=== PATIENT | male | born 1985 | race Caucasian/White ===

== ENCOUNTER 2017-02-25 03:14 | Observation (INO) | payer SELFPAY ==
[2017-02-25 03:21] VITALS: TEMP 98
--- NOTE | 2017-02-25 03:38 | ED PDOC ---
HPI: Psych/Substance Abuse Time Seen by Provider: 02/25/17 03:24 Chief Complaint (Nursing): Alcohol Ingestion Chief Complaint (Provider): Alcohol ingestion ED Caveat: Intoxicated History Per: EMS History/Exam Limitations: intoxication Modifying Factor(s): Alcohol Additional Complaint(s): 32yo male, brought to ED by EMS for evaluation after finding the patient publicly intoxicated. Patient unable to provider HPI and ROS due to intoxication. He offers no medical complaints. Past Medical History Reviewed: Historical Data, Nursing Documentation, Vital Signs Vital Signs: Last Vital Signs Temp 98 F 02/25/17 03:18 Pulse 117 H 02/25/17 03:18 Resp 18 02/25/17 03:18 BP 120/67 02/25/17 03:18 Pulse Ox 100 02/25/17 03:18 - Medical History PMH: No Chronic Diseases - Surgical History Surgical History: No Surg Hx - Family History Family History: States: No Known Family Hx - Home Medications Home Medications: Ambulatory Orders Medication Instructions Recorded No Known Home Med 02/25/17 - Allergies Allergies/Adverse Reactions: Allergies Allergy/AdvReac Type Severity Reaction Status Date / Time No Known Allergies Allergy Verified 02/25/17 03:18 Review of Systems Review Of Systems: ROS cannot be obtained secondary to pt's inabilty to answer questions. Physical Exam - Reviewed Nursing Documentation Reviewed: Yes Vital Signs Reviewed: Yes - Physical Exam Appears: Positive for: No Acute Distress Head Exam: Positive for: ATRAUMATIC Skin: Positive for: Warm Eye Exam: Positive for: Normal appearance Neck: Positive for: Supple Cardiovascular/Chest: Positive for: Regular Rate, Rhythm Respiratory: Positive for: Normal Breath Sounds. Negative for: Respiratory Distress Gastrointestinal/Abdominal: Positive for: Soft. Negative for: Tenderness Back: Positive for: Normal Inspection Extremity: Positive for: Normal ROM. Negative for: Deformity, Swelling Neurologic/Psych: Positive for: Mood/Affect (slurred speech), Gait (unsteady ) - Laboratory Results Result Diagrams: 02/25/17 04:39 02/25/17 04:39 - ECG O2 Sat by Pulse Oximetry: 100 (RA) Pulse Ox Interpretation: Normal Medical Decision Making Medical Decision Making: Time: 323 Impression: EtOH Plan: -- Patient placed under 4point restraints as he is combative -- Labs -- Haldol 5mg IM -- Ativan 2mg IM Reassess Time: 0700 --Patient was endorsed to Dr. Kingsley Sánchez III. Pending sobriety and re- evaluation. Scribe Attestation: Documented by Sarah Yarbrough acting as a scribe for Glenn Melara MD. Provider Attestation: All medical record entries made by the Scribe were at my direction and personally dictated by me. I have reviewed the chart and agree that the record accurately reflects my personal performance of the history, physical exam, medical decision making, and the department course for this patient. I have also personally directed, reviewed, and agree with the discharge instructions and disposition. ED OBSERVATION Date of observation admission: 02/25/17 Time of observation admission: 03:26 - Observation admission statement Patient is being placed in observation because:: Patient acutely intoxicated - Goals of Observation Goals of observation are:: Clinical sobriety - Progress Note Progress Note: 02/25/17 05:10 Resting in room, no acute distress. 02/25/17 07:00 Patient to be signed out to Dr. Sánchez pending clinical sobriety. Disposition - Clinical Impression Clinical Impression: Alcohol abuse with alcohol-induced disorder - Patient ED Disposition Is Patient to be Admitted: Transfer of Care - Disposition Disposition: Transfer of Care Disposition Time: 03:26 Condition: STABLE Patient Signed Over To: Kingsley Sánchez III Handoff Comments: Pending clinical sobriety
[2017-02-25 04:47] LABS: BASO # 0.1 K/uL (0.0-0.2); BASO % 1.1 % (0.0-2.0); EOS # 0.1 K/uL (0.0-0.7); EOS % 1.4 % (0.0-4.0); HEMATOCRIT 43.2 % (35.0-51.0); LYMPH # 1.8 K/uL (1.0-4.3); MEAN CELL VOLUME 87.1 fl (80.0-94.0); MEAN CORPUSCULAR HEMOGLOBIN 28.8 pg (27.0-31.0); MEAN CORPUSCULAR HGB CONC 33.1 g/dL (33.0-37.0); MONO # 0.2 K/uL (0.0-0.8); NEUT # 3.7 K/uL (1.8-7.0); NEUT % 62.5 % (50.0-75.0); NRBC % 0.1 % (0.0-0.0); RED CELL DISTRIBUTION WIDTH 14.3 % (11.5-14.5); WHITE BLOOD COUNT 5.9 K/uL (4.8-10.8)
[2017-02-25 04:55] LABS: ALB/GLOB RATIO 1.4 (1.0-2.1); ALCOHOL SERUM 63 mg/dl (0-10); ALKALINE PHOSPHATASE 49 U/L (38-126); ALT/SGPT 97 U/L (21-72); AST/SGOT 48 U/L (17-59); BILIRUBIN,TOTAL 0.3 mg/dl (0.2-1.3); BLOOD UREA NITROGEN 13 mg/dl (9-20); CALCIUM 9.2 mg/dL (8.4-10.2); CARBON DIOXIDE 20 mmol/L (22-30); CHLORIDE 109 mmol/L (98-107); GFR AFRICAN-AMERICAN > 60; GLUCOSE,RANDOM 105 mg/dL (75-110); POTASSIUM 3.4 MMOL/L (3.6-5.0); SODIUM 148 mmol/l (132-148); TOTAL PROTEIN 7.1 G/DL (6.3-8.2)
--- NOTE | 2017-02-25 07:06 | ED PDOC ---
- Laboratory Results Result Diagrams: 02/25/17 04:39 02/25/17 04:39 - ECG O2 Sat by Pulse Oximetry: 100 (RA) Pulse Ox Interpretation: Normal Medical Decision Making Medical Decision Making: Time: 0700 --Patient was endorsed to provider by Dr. Glenn Melara. Pending sobriety and re-evaluation. --Patient is resting comfortably with stable vital signs. Time: 0830 --Patient continues to rest comfortably with stable vitals. Time: 1000 --Patient is resting comfortably with stable vitals. Time: 1130 --Patient is resting comfortably with stable vitals. 12noon- cleared by crisis/ Dr Mcleod for discharge/. Clinical Impression: Alcohol abuse Scribe Attestation: Documented by Susan Farmer, acting as a scribe for Kingsley Sánchez III, DO. Provider Attestation: All medical record entries made by the Scribe were at my direction and personally dictated by me. I have reviewed the chart and agree that the record accurately reflects my personal performance of the history, physical exam, medical decision making, and the department course for this patient. I have also personally directed, reviewed, and agree with the discharge instructions and disposition. Disposition Counseled Patient/Family Regarding: Studies Performed, Diagnosis, Need For Followup - Clinical Impression Clinical Impression: Alcohol abuse with alcohol-induced disorder - POA Present On Arrival: None - Disposition Disposition: Routine/Home Disposition Time: 12:01 Condition: STABLE
[2017-02-25 07:13] VITALS: BP 135/80; PULSE 86; RESP 16
[2017-02-25 07:45] VITALS: O2SAT 100
== END 2017-02-25 12:01 | disposition home or self-care (01) ==
LOC: H.ER 03:14 → H.EROBSV 03:26
PROVIDERS: ADMIT Emergency Medicine; ATTEND Emergency Medicine
DX: F10.19 Alcohol abuse with unspecified alcohol-induced disorder (principal); Y90.3 Blood alcohol level of 60-79 mg/100 ml
CPT/HCPCS: 36415; 80053; 85025; 96372; 99285; G0378; G0480; J1630; J2060